=== PATIENT | female | born 1985 | race Caucasian/White ===

== ENCOUNTER 2021-11-24 12:15 | Emergency (ER) | payer SELFPAY ==
--- NOTE | ~2021-11-24 | CT_ITS ---
EXAMINATION: CT HEAD WITHOUT CONTRAST CLINICAL INFORMATION: Fall. Head injury and loss of consciousness COMPARISON: None TECHNIQUE: Contiguous axial imaging was performed from the skull base to vertex without intravenous administration of contrast. This CT examination was performed using dose optimization techniques as appropriate, variously including the following: *Automated exposure control *Adjustment of mA and/or kV according to patient size (this includes techniques or standardized protocols for targeted exams where dose is matched to indication/reason for exam; i.e. extremities or head) *Use of iterative reconstruction technique DLP: 778 mGy-cm FINDINGS: There is no evidence of acute intracranial hemorrhage or territorial infarction. No abnormal mass effect or midline shift is seen. Pink to white matter differentiation is well preserved. No extra-axial fluid collections are identified. The ventricles are normal in size. There is no abnormal attenuation within the brain parenchyma. The osseous structures and soft tissues are normal. The mastoid air cells and visualized portions of the paranasal sinuses are well aerated. CT/CT head/brain wo con IMPRESSION: Unremarkable exam.
--- NOTE | ~2021-11-24 | CT_ITS ---
EXAMINATION: CT CERVICAL SPINE WITHOUT CONTRAST CLINICAL INFORMATION: Fall. COMPARISON: None TECHNIQUE: Axial images through the cervical spine without contrast. Sagittal and coronal reconstructions on the technologist workstation were performed. This CT examination was performed using dose optimization techniques as appropriate, variously including the following: *Automated exposure control *Adjustment of mA and/or kV according to patient size (this includes techniques or standardized protocols for targeted exams where dose is matched to indication/reason for exam; i.e. extremities or head) *Use of iterative reconstruction technique DLP: 597 mGy-cm FINDINGS: Bone alignment is normal. No fracture or dislocation is seen. Disc spaces are normal. Prevertebral soft tissues are normal. Visualized lung apices are clear. CT/CT cervical spine wo con IMPRESSION: Unremarkable examination. Fleischner guidelines were followed.
[2021-11-24 12:22] VITALS: BP 123/75; PULSE 87; RESP 18; TEMP 36.3; O2SAT 100; BMI 28.3
[2021-11-24] MEDS: Ondansetron ODT 4 MG TAB.RAPDIS TRANSLINGU (12:46)
--- NOTE | 2021-11-24 14:51 | ED_ITS ---
HPI - Fall General Chief Complaint: Fall Stated Complaint: Fall Time Seen by Provider: 11/24/21 12:32 Source: patient Mode of arrival: ambulatory Limitations: no limitations History of Present Illness HPI Narrative: 36-year-old female with a past medical history of migraine headaches, asthma, pulmonary embolism, renal colic, frequent UTIs, diverticulosis and sciatica presenting to the ED with complaints of intermittent dizziness, fogginess, and posterior scalp pain and mild right-sided neck pain since she had a mechanical fall 2 days ago when she was getting out of her car outside from work and she slipped and fell backwards hitting her head and she lost consciousness for brief couple seconds although she was able to regain consciousness and get up right away. She denies any prolonged down time. She denies being on any blood thinners. She denies any symptoms prior to the fall such as dizziness, headache, chest pain or shortness of breath or any other symptoms. She reports that she came here today due to the intermittent dizziness, fogginess, nausea and this morning she woke up with pinpoint pupils. Otherwise she denies any additional complaints or concerns. MD complaint: fall Onset (ago): day(s) (2) Fall from: other Fall witnessed: no Place fall occurred: street Loss of consciousness: yes, seconds Length of LOC: second(s) Prolonged down time: no Symptoms prior to fall: none Context: tripped/slipped Location of injury: head and neck Severity: moderate Quality: aching and throbbing Associated symptoms (after fall): headache and neck pain Related Data Previous Rx's Medication Instructions Recorded diazepam 5 mg tablet (Valium) 5 mg PO TID PRN #14 tab 11/24/21 naproxen 500 mg tablet 500 mg PO BID PRN #14 tab 11/24/21 ondansetron 4 mg disintegrating 4 mg PO Q6-8H PRN #14 tab 11/24/21 tablet Allergies Allergy/AdvReac Type Severity Reaction Status Date / Time No Known Allergies Allergy Verified 11/24/21 12:38 Review of Systems Review of Systems: Constitutional : No Fever, No Chills, No Night Sweats, No Fatigue, No Malaise ENT/Mouth : No Ear Pain, No Nasal Congestion, No Sinus Pain, No sore throat, No Rhinorrhea Eyes: No Eye Pain, No Swelling, No Redness, No Foreign Body, No Discharge, No Vision Changes Cardiovascular : No Chest Pain, No SOB, No Dyspnea on Exertion, No Orthopnea, No Palpitations Respiratory : No Cough, No Sputum, No Wheezing, No Dyspnea Gastrointestinal : No Nausea, No Vomiting, No Diarrhea, No Constipation, No abdominal Pain, No Hematochezia, No Melena Genitourinary : No Dysuria, No Urinary Frequency, No Urinary Incontinence, No Urgency, No Flank Pain Musculoskeletal : No joint pain, No Myalgias Skin : No lacerations Neuro : + head injury c brief loc now c dizziness and posterior scalp/head pain, No Focal weakness, no general weakness, No Numbness, No Paresthesias, No Loss of Consciousness Yes all other systems are reviewed and are negative [facility] Past Medical History Attestation statement: The following information was validated with the patient. Social History Social History Advance Directives: No Advance Directives Information Provided: No Physical Exam Vital Signs: Vital Signs: Last Vital Signs Temp 97.3 F 11/24/21 12: Pulse 87 11/24/21 12:22 Resp 18 11/24/21 12:22 BP 123/75 11/24/21 12: Pulse Ox 100 11/24/21 12:22 BMI result Body Mass Index 28.3 Vital signs have been reviewed as normal and appeared to be correct. Blood pressure normal. Heart rate normal. Respiration rate normal. Temperature normal. Oxygen saturation normal. Appearance: Alert. Oriented X3. No acute distress. Head: Normal external exam. Normocephalic. Atraumatic. Able to rotate head bilaterally. No alvarado signs or raccoon eyes noted. Patient does have tenderness palpation to the posterior occipital aspect of the scalp although no obvious deformities or bruising or lacerations or signs of infection or hematomas noted. Eyes: PERRLA. EOMI. No nystagmus noted. Conjunctiva and sclera normal. Eyelids normal. Corneal reflex normal. ENT: EAC normal. TM's Normal. Hearing normal. Pharynx normal. Uvula midline. tongue midline. Moist mucous membranes. No trismus noted. No drooling noted. No muffled voice noted. No nystagmus noted. Neck: Normal inspection. Neck supple. FROM. No adenopathy. Trachea midline. Thyroid Normal. No meningeal signs. No neck mass noted. Patient mild tenderness the patient to the right paracervical musculature. No mid cervical tenderness step-offs or deformities are noted. Patient is neuro intact bilaterally and distally on all 4 extremities. Reflexes intact bilaterally and distally in all 4 extremities. CVS: Normal heart rate and rhythm. Heart sound normal. No murmurs noted. Pulses normal throughout. Respiratory: No respiratory distress. Painless inspiration. Breath sounds normal. No wheezes/rales/rhonchi noted. Chest nontender. No accessory muscle usage noted or decreased air movement noted. Abdomen: Soft and nontender. Bowel sounds normal in all 4 quadrants. No distention noted. No organomegaly noted. No visible injury noted. Back: No CVA tenderness. Full range of motion noted. Skin: Skin warm and dry. Normal skin color. Normal skin turgor. No rashes/lesions/lacerations noted. Extremities: No lower extremity edema. Extremities exhibit normal range of motion. Extremities nontender. Able to shrug shoulders bilaterally and keep up against resistance. Neuro: Oriented X 3. No motor deficit. No sensory deficit. Reflexes normal. Moving all extremities. No focal motor deficits. Cranial nerves II-XI intact bilaterally. Facial strength normal. Normal cognition. Speech normal. Gait normal. Strength 5/5 throughout. No tremor noted. No fasciculations noted. No rigidity noted. Muscle tone normal throughout. Course Course Course Narrative: 14:15pm - 36-year-old female with a past medical history of migraine headaches, asthma, pulmonary embolism, renal colic, frequent UTIs, diverticulosis and sciatica presenting to the ED with complaints of intermittent dizziness, fogginess, and posterior scalp pain and mild right-sided neck pain since she had a mechanical fall 2 days ago when she was getting out of her car outside from work and she slipped and fell backwards hitting her head and she lost consciousness for brief couple seconds although she was able to regain consciousness and get up right away. She denies any prolonged down time. She denies being on any blood thinners. She denies any symptoms prior to the fall such as dizziness, headache, chest pain or shortness of breath or any other symptoms. She reports that she came here today due to the intermittent dizziness, fogginess, nausea and this morning she woke up with pinpoint pupils. Otherwise she denies any additional complaints or concerns. On exam patient is alert oriented x3. Not in any acute distress. Pupils are equal round and reactive to light. Extraocular movements are intact. She does have tenderness palpation to the posterior scalp although no evidence of trauma or infection. She does have mild right neck pain although no mid cervical tenderness step-offs or deformities noted. Motor is normal throughout the entire body. Sensation normal throughout the entire body. Therefore at this time will obtain a CT scan of brain/cervical spine then re- evaluate. Reevaluation(s) Reevaluation #1: - CT scan of brain/cervical spine within normal limits no acute processes. Will DC home with symptomatic treatment instructions return if any new or worsening symptoms to follow up with primary care provider. Patient understands agrees with this plan. Time: 15:54 MDM - Fall Medical Records Attestation: I reviewed the patient's medical records. Imaging Data CT scan of brain/cervical spine without contrast: Attestation: I personally reviewed and interpreted this imaging study as seng faria: Radiologist's impression: FINDINGS: There is no evidence of acute intracranial hemorrhage or territorial infarction. No abnormal mass effect or midline shift is seen. Pink to white matter differentiation is well preserved. No extra-axial fluid collections are identified. The ventricles are normal in size. There is no abnormal attenuation within the brain parenchyma. The osseous structures and soft tissues are normal. The mastoid air cells and visualized portions of the paranasal sinuses are well aerated. ? CT/CT head/brain wo con IMPRESSION: Unremarkable exam. FINDINGS: Bone alignment is normal. No fracture or dislocation is seen. Disc spaces are normal. Prevertebral soft tissues are normal. Visualized lung apices are clear. CT/CT cervical spine wo con IMPRESSION: Unremarkable examination.? ? Fleischner guidelines were followed. Discharge Plan Discharge Clinical Impression: Concussion with loss of consciousness, Cervical muscle strain Patient Disposition: Home, Self-Care Instructions: Cervical Strain (ED), Concussion (ED) Prescriptions: New naproxen 500 mg tablet 500 mg PO BID PRN (Reason: pain) Qty: 14 0RF diazepam [Valium] 5 mg tablet 5 mg PO TID PRN (Reason: muscle spasm) Qty: 14 0RF ondansetron 4 mg tablet,disintegrating 4 mg PO Q6-8H PRN (Reason: nausea and vomiting ) Qty: 14 0RF Referrals: Physician,Unknown J [Primary Care Provider] - 2 days (your pcp) Stand Alone Forms: Work/School Release Print Language: Urdu
== END 2021-11-24 16:05 | disposition home or self-care (01) ==
PROVIDERS: Emergency Provider Emergency Medicine
DX: S06.0X1A Concussion with loss of consciousness of 30 minutes or less, initial encounter (principal); S16.1XXA Strain of muscle, fascia and tendon at neck level, initial encounter; W01.198A Fall on same level from slipping, tripping and stumbling with subsequent striking against other object, initial encounter; Y93.01 Activity, walking, marching and hiking; Y92.414 Local residential or business street as the place of occurrence of the external cause; Y99.0 Civilian activity done for income or pay
CPT/HCPCS: 70450; 72125; 99283; 99284